=== PATIENT | male | born 1985 | race African-American/Black ===

== ENCOUNTER 2018-02-09 08:29 | Emergency (ER) | payer OTHER ==
[2018-02-09 08:34] VITALS: BP 189/100
[2018-02-09 08:59] LABS: BASO # 0.1 x10^3/uL (0.0-0.2); BASO % 2 % (0-3); EOS # 0.1 x10^3/uL (0.0-0.7); EOS % 3 % (0-3); HEMATOCRIT 41.4 % (39.0-53.0); HEMOGLOBIN 13.6 g/dL (13.0-17.5); LYMPH # 1.8 x10^3/uL (1.0-4.8); LYMPH % 37 % (24-48); MEAN CORPUSCULAR HEMOGLOBIN 28 pg (25-35); MEAN CORPUSCULAR HGB CONC 33 g/dL (31-37); MEAN CORPUSCULAR VOLUME 86 fL (79-100); MONO # 0.6 x10^3/uL (0.0-1.1); MONO % 13 % (0-9); NEUT # 2.2 x10^3uL (1.8-7.7); NEUT % 45 % (31-73); PLATELET COUNT 460 x10^3/uL (140-400); RED BLOOD COUNT 4.82 x10^6/uL (4.30-5.70); WHITE BLOOD COUNT 4.9 x10^3/uL (4.0-11.0)
[2018-02-09] MEDS ORDERED: levETIRAcetam 500 MG/5 ML VIAL IV ONE (09:09)
[2018-02-09] MEDS ORDERED: IV NORMAL SALINE 100ML 100 ML ONE (09:09)
[2018-02-09 09:11] LABS: ALBUMIN 3.6 g/dL (3.4-5.0); ALK PHOS 153 U/L (46-116); ALT (SGPT) 41 U/L (16-63); ANION GAP 8 (6-14); AST (SGOT) 32 U/L (15-37); BLOOD UREA NITROGEN 13 mg/dL (8-26); BUN/CREATININE RATIO 14 (6-20); CALCIUM 8.1 mg/dL (8.5-10.1); CARBON DIOXIDE 28 mmol/L (21-32); CHLORIDE 107 mmol/L (98-107); CREATININE 0.9 mg/dL (0.7-1.3); GFR 118.3; GLUCOSE 83 mg/dL (70-99); PHENY 17.7 mcg/mL (10.0-20.0); POTASSIUM 4.4 mmol/L (3.5-5.1); SODIUM 143 mmol/L (136-145); TOTAL BILIRUBIN 0.1 mg/dL (0.2-1.0); TOTAL PROTEIN 7.2 g/dL (6.4-8.2)
[2018-02-09] MEDS: KETOROLAC 30 MG/ML VIAL. IV ONE (09:14)
[2018-02-09] MEDS: IV NORMAL SALINE 500ML 500 ML IV ONE (09:30)
--- NOTE | 2018-02-09 09:31 | PHYS DOC ---
Past History Past Medical History: Seizure Smoking: Non-smoker Adult General Chief Complaint Chief Complaint: SEIZURE HPI HPI 32-year-old incarcerated male patient with history of seizures had a witnessed grand mal seizure this morning with a fall and injury to his head. Patient denies loss of urine and bowel and other injuries and complaining of headache without focal neuro deficits. Patient states he takes 2000 mg of Keppra and 400 Mg of Dilantin without missing his medication. Patient states recently he is getting more episodes of seizure and the last seizure was one week ago. Patient denies using alcohol and illegal drugs. Review of Systems Review of Systems Constitutional: Denies fever or chills [] Eyes: Denies change in visual acuity, redness, or eye pain [] HENT: Denies nasal congestion or sore throat [] Respiratory: Denies cough or shortness of breath [] Cardiovascular: No additional information not addressed in HPI [] GI: Denies abdominal pain, nausea, vomiting, bloody stools or diarrhea [] : Denies dysuria or hematuria [] Musculoskeletal: Denies back pain or joint pain [] Integument: Denies rash or skin lesions [] Neurologic: Reports headache, denies focal weakness or sensory changes [] Endocrine: Denies polyuria or polydipsia [] All other systems were reviewed and found to be within normal limits, except as documented in this note. Current Medications Current Medications Current Medications Medications (Trade) Dose Ordered Sig/Amairani Start Time Stop Time Status Last Admin Dose Admin Ketorolac Tromethamine (Toradol) 30 mg 1X ONCE 02/09/18 09:30 02/09/18 09:31 DC 02/09/18 09:14 30 MG Levetiracetam (Keppra) 500 mg STK-MED ONCE 02/09/18 09:09 02/09/18 09:10 DC Levetiracetam 1000 mg/Sodium Chloride 100 ml @ 400 mls/hr 1X ONCE 02/09/18 09:30 02/09/18 09:44 02/09/18 09:20 400 MLS/HR Sodium Chloride 100 ml @ As Directed STK-MED ONCE 02/09/18 09:09 02/09/18 09:10 DC Allergies Allergies Allergies Coded Allergies Type Severity Reaction Last Updated Verified No Known Drug Allergies 02/09/18 No Physical Exam Physical Exam Constitutional: Well developed, well nourished, mild distress, non-toxic appearance. [] HENT: Normocephalic, atraumatic Eyes: PERRLA, EOMI, conjunctiva normal, no discharge. [] Neck: Normal range of motion, no tenderness, supple, no stridor. [] Cardiovascular:Heart rate regular rhythm, no murmur [] Lungs & Thorax: Bilateral breath sounds clear to auscultation [] Abdomen: Bowel sounds normal, soft, no tenderness, no masses, no pulsatile masses. [] Skin: Warm, dry, no erythema, no rash. [] Back: No tenderness, no CVA tenderness. [] Extremities: No tenderness, no cyanosis, no clubbing, ROM intact, no edema. [] Neurologic: Alert and oriented X 3, normal motor function, normal sensory function, no focal deficits noted. [] Psychologic: Affect normal, judgement normal, mood normal. [] Current Patient Data Lab Results Laboratory Tests Test 02/09/18 08:45 White Blood Count 4.9 x10^3/uL (4.0-11.0) Red Blood Count 4.82 x10^6/uL (4.30-5.70) Hemoglobin 13.6 g/dL (13.0-17.5) Hematocrit 41.4 % (39.0-53.0) Mean Corpuscular Volume 86 fL (79-100) Mean Corpuscular Hemoglobin 28 pg (25-35) Mean Corpuscular Hemoglobin Concent 33 g/dL (31-37) Red Cell Distribution Width 14.0 % (11.5-14.5) Platelet Count 460 x10^3/uL (140-400) H Neutrophils (%) (Auto) 45 % (31-73) Lymphocytes (%) (Auto) 37 % (24-48) Monocytes (%) (Auto) 13 % (0-9) H Eosinophils (%) (Auto) 3 % (0-3) Basophils (%) (Auto) 2 % (0-3) Neutrophils # (Auto) 2.2 x10^3uL (1.8-7.7) Lymphocytes # (Auto) 1.8 x10^3/uL (1.0-4.8) Monocytes # (Auto) 0.6 x10^3/uL (0.0-1.1) Eosinophils # (Auto) 0.1 x10^3/uL (0.0-0.7) Basophils # (Auto) 0.1 x10^3/uL (0.0-0.2) Sodium Level 143 mmol/L (136-145) Potassium Level 4.4 mmol/L (3.5-5.1) Chloride Level 107 mmol/L (98-107) Carbon Dioxide Level 28 mmol/L (21-32) Anion Gap 8 (6-14) Blood Urea Nitrogen 13 mg/dL (8-26) Creatinine 0.9 mg/dL (0.7-1.3) Estimated GFR (Cockcroft-Gault) 118.3 BUN/Creatinine Ratio 14 (6-20) Glucose Level 83 mg/dL (70-99) Calcium Level 8.1 mg/dL (8.5-10.1) L Total Bilirubin 0.1 mg/dL (0.2-1.0) L Aspartate Amino Transferase (AST) 32 U/L (15-37) Alanine Aminotransferase (ALT) 41 U/L (16-63) Alkaline Phosphatase 153 U/L (46-116) H Total Protein 7.2 g/dL (6.4-8.2) Albumin 3.6 g/dL (3.4-5.0) Albumin/Globulin Ratio 1.0 (1.0-1.7) Phenytoin (Dilantin) Level 17.7 mcg/mL (10.0-20.0) Phenytoin Last Dose Date 02/08/2018 Phenytoin Last Dose Time 2100 EKG EKG [] Radiology/Procedures Radiology/Procedures [address] [address] IMAGING REPORT Signed PATIENT: DEVON PHELPS ACCOUNT: [id number] : 1985 LOCATION: ER AGE: 32 SEX: M EXAM STATUS: REG ER ORD. PHYSICIAN: DAPHNE JAVED MD REASON: seizure and fall PROCEDURE: CT HEAD AND CERVICAL SPINE WO CT scan of the head without contrast 02/09/2018 Clinical History: Seizure with fall striking left side of head. Technique: Unenhanced, contiguous, 5 mm axial sections were obtained through the head. One or more of the following individualized dose reduction techniques were utilized for this study: 1. Automated exposure control. 2. Adjustment of the mA and/or kV according to patient size. 3. Use of iterative reconstruction technique. Findings: The ventricles and sulci are within normal limits in size and configuration. No focal area of abnormal attenuation is seen involving the brain parenchyma. No extra-axial fluid collection is seen. No skull fracture is seen. Impression: Negative study. CT scan of the cervical spine without contrast 02/09/2018 Clinical history: Fall with neck injury. Technique: Unenhanced, contiguous, 0.625 mm axial sections were obtained through the cervical spine. Axial, coronal and sagittal reconstructed images were obtained. One or more of the following individualized dose reduction techniques were utilized for this study: 1. Automated exposure control. 2. Adjustment of the mA and/or kV according to patient size. 3. Use of iterative reconstruction technique. Course & Med Decision Making Course & Med Decision Making Pertinent labs and Imaging studies reviewed. (See chart for details) Evaluation of patient in ER showed 32-year-old male patient with history of seizure who had a seizure and fall and [facility] this [facility] at the [facility]. Patient had unremarkable physical exam and labs and CT head. Patient treated with IV fluid and 1 dose of Keppra in ER. Plan to discharge patient to [facility] and instructed to follow with neurology. Patient had blood pressure of 180s at arrival to ER that gradually decreased to 150/105 without history of hypertension. Patient instructed to record his blood pressure and follow with his primary care physician regarding elevated blood pressure. Patient ambulated without problem. Dragon Disclaimer Dragon Disclaimer This electronic medical record was generated, in whole or in part, using a voice recognition dictation system. Departure Departure: Impression: Primary Impression: Recurrent seizures Additional Impression: Elevated blood pressure reading without diagnosis of hypertension Condition: IMPROVED Referrals: PCP,NO (PCP) SAGE CAPONE MD Patient Instructions: Form - Blood Pressure Record Sheet, Managing Your High Blood Pressure, Seizure, Adult Additional Instructions: Record her blood pressure and follow with her primary care physician in 5-7 days Continue home medication for seizure Follow-up with neurology on-call in 2 or 3 days Problem Qualifiers DAPHNE JAVED MD Feb 09, 2018 09:31
--- NOTE | 2018-02-09 10:38 | RAD ---
CT scan of the head without contrast 02/09/2018 Clinical History: Seizure with fall striking left side of head. Technique: Unenhanced, contiguous, 5 mm axial sections were obtained through the head. One or more of the following individualized dose reduction techniques were utilized for this study: 1. Automated exposure control. 2. Adjustment of the mA and/or kV according to patient size. 3. Use of iterative reconstruction technique. Findings: The ventricles and sulci are within normal limits in size and configuration. No focal area of abnormal attenuation is seen involving the brain parenchyma. No extra-axial fluid collection is seen. No skull fracture is seen. Impression: Negative study. CT scan of the cervical spine without contrast 02/09/2018 Clinical history: Fall with neck injury. Technique: Unenhanced, contiguous, 0.625 mm axial sections were obtained through the cervical spine. Axial, coronal and sagittal reconstructed images were obtained. One or more of the following individualized dose reduction techniques were utilized for this study: 1. Automated exposure control. 2. Adjustment of the mA and/or kV according to patient size. 3. Use of iterative reconstruction technique. Findings: Sagittal and coronal reconstructed images demonstrate minimal lateral curvature of the cervical spine, convex to the right. There is mild straightening of the normal cervical lordosis. No fracture or subluxation cervical vertebrae is seen. No significant degenerative changes are seen. Mild bullous emphysematous changes are seen involving the apices of both lungs. Impression: No fracture or subluxation of the cervical vertebra is identified. Electronically signed by: Daniel Marie MD (02/09/2018 10:34 AM) [facility]
[2018-02-09 11:01] LABS: BARBITURATES NEG (NEG); BENZODIAZEPINES NEG (NEG); CANNABINOIDS NEG (NEG); COCAINE NEG (NEG); METHADONE NEG (NEG); OPIATES NEG (NEG); PHENCYCLIDINE NEG (NEG)
[2018-02-09 11:02] LABS: AMPHETAMINE/METHAMPHETAMINE NEG (NEG)
[2018-02-09 11:17] LABS: BACTERIA,URINE 0 /HPF (0-FEW); BILIRUBIN,URINE NEG (NEG); CLARITY,URINE CLEAR; COLOR,URINE YELLOW; GLUCOSE,URINE NEG (NEG); NITRITE,URINE NEG (NEG); RBC,URINE 0 /HPF (0-2); SQUAMOUS EPITHELIAL CELL,UR OCC /LPF; UROBILINOGEN,URINE 0.2 mg/dL (0.2 mg/dL); WBC,URINE 0 /HPF (0-4)
== END 2018-02-09 11:20 | disposition home or self-care (01) ==
LOC: ER 08:29
DX: G40.909 Epilepsy, unspecified, not intractable, without status epilepticus (principal); R03.0 Elevated blood-pressure reading, without diagnosis of hypertension
CPT/HCPCS: 36415; 70450; 72125; 80053; 80185; 80307; 81001; 85025; 96365; 96375; 99285; J1885; J1953; J7040; G0479